=== PATIENT | male | born 1960 | race Caucasian/White ===

== ENCOUNTER → 2019-08-23 | Outpatient (CLI) | payer OTHER ==
--- NOTE | 2019-08-23 08:58 | KCIC ---
CERVICAL SPINE WO CONTRAST History: Cervical radiculopathy. Left upper extremity radiculopathy. Chronic neck pain. Technique: Multiplanar, multi sequential noncontrast MR imaging was performed of the cervical spine. Comparison: CT February 16, 2018 Findings: Straightening of the normal cervical lordosis. Postoperative changes anterior stabilization and interbody fusion C3-C4. Grade 1 anterolisthesis C4 on C5 and C5 on C6. Normal vertebral body height. No fracture. No pathologic signal abnormality within the cervical spinal cord. C2-C3: No canal narrowing. Uncovertebral and facet arthropathy. Moderate left and mild right neuroforaminal narrowing. C3-C4: Intervertebral fusion. No canal narrowing. Uncovertebral and facet arthropathy, left greater than right. Mild left neuroforaminal narrowing. No right neuroforaminal narrowing. C4-C5: Anterolisthesis. Small posterior disc osteophyte complex. Minimal cord flattening. No canal narrowing. Right uncovertebral and facet arthropathy. Severe right neuroforaminal narrowing. Mild left neural foraminal narrowing. C5-C6: Anterolisthesis. Posterior disc osteophyte complex. Minimal cord flattening. No canal narrowing. Uncovertebral and facet arthropathy. Mild bilateral neural foraminal narrowing. C6-C7: Posterior disc osteophyte complex. Mild cord flattening. No canal narrowing. Uncovertebral and facet arthropathy, left greater than right. Severe left and mild right neuroforaminal narrowing. C7-T1: Posterior disc osteophyte complex. No canal narrowing. No neuroforaminal narrowing. Mild facet arthropathy. Impression: 1. Anterior stabilization and interbody fusion C3-C4. 2. Grade 1 anterolisthesis C4 on C5 and C5 on C6, slightly progressed compared to prior. 3. Moderate multilevel cervical spondylosis. 4. Multilevel neural foraminal narrowing most severe right C4-C5 and left C6-C7. Electronically signed by: Sukh Mix DO (08/23/2019 8:56 AM) [email or web address]
== END | disposition home or self-care (01) ==
LOC: KCIC MRI 07:43
PROVIDERS: ATTEND Neurological Surgery
DX: M47.22 Other spondylosis with radiculopathy, cervical region (principal); M43.12 Spondylolisthesis, cervical region; M48.02 Spinal stenosis, cervical region; M25.78 Osteophyte, vertebrae; Z98.890 Other specified postprocedural states; Z98.1 Arthrodesis status
CPT/HCPCS: 72141

== ENCOUNTER → 2020-02-25 | Outpatient (CLI) | payer OTHER ==
--- NOTE | 2020-02-25 12:22 | KCIC ---
C-spine 2 views Indication: postop cervical fusion COMPARISON: 08/23/2019 C-spine MRI FINDINGS: ACDF surgical changes at C3-C4 with interbody graft is redemonstrated. No evidence of hardware loosening or migration. The cervical spine is straightened. Facet degenerative changes are present bilaterally, most conspicuously at the right C4-C5 joint. IMPRESSION: C3-C4 ACDF surgical changes without acute complication shown. Electronically signed by: Afsaneh Guadalupe MD (02/25/2020 12:19 PM) [id number]
== END | disposition home or self-care (01) ==
LOC: KCIC 11:03
PROVIDERS: ATTEND Neurological Surgery
DX: M47.812 Spondylosis without myelopathy or radiculopathy, cervical region (principal); M43.22 Fusion of spine, cervical region
CPT/HCPCS: 72040